=== PATIENT | male | born 1995 | race Caucasian/White ===

== ENCOUNTER → 2018-12-25 | Outpatient (CLI) | payer BC ==
--- NOTE | 2018-12-25 11:13 | MR ---
EXAMINATION TYPE: MR shoulder RT wo con DATE OF EXAM: 12/25/2018 COMPARISON: Pain in right shoulder HISTORY: Right shoulder pain TECHNIQUE: Multiplanar, multisequence imaging of the right shoulder is performed without contrast. FINDINGS: There is increased intrasubstance signal within the distal margin of the infraspinatus and supraspinatus tendons compatible tendinosis and partial intrasubstance tear. Suspect a partial throug h thickness tear involving the anterior fibers of the supraspinatus near the insertion measuring 5 mm . No retraction. Bony labrum intact. Glenohumeral ligaments intact. Arthropathy of the AC joint with very mild mass effect and impingement upon the supraspinatus muscle. No sizable joint effusion. Bone marrow signal within the humeral head is nonspecific but likely in th e basis of chronic impingement. Bicipital tendon is well situated in the bicipital groove. Suprascapular notch has a normal appearanc e. IMPRESSION: 1. Diffuse severe tendinosis of the distal margin of the supraspinatus and infraspinatus tendons. Bur matthew scuffing along the insertion of the supraspinatus tendon with a suspicion of a 5 mm partial throu gh thickness tear involving the anterior fibers of the supraspinatus.
== END | disposition home or self-care (01) ==
LOC: RADMRIMAIN 09:48
PROVIDERS: ATTEND Orthopaedic Surgery
DX: M67.813 Other specified disorders of tendon, right shoulder (principal)

== ENCOUNTER → 2019-01-11 | Outpatient (CLI) | payer BC ==
[2019-01-11 13:17] LABS: Basophils # (A) 0.1 k/uL (0-0.2); Basophils % (A) 1 %; Eosinophils # (A) 0.6 k/uL (0-0.7); Eosinophils % (A) 7 %; HCT 45.8 % (39.0-53.0); Lymphocytes # (A) 3.6 k/uL (1.0-4.8); Lymphocytes % (A) 44 %; MCH 29.2 pg (25.0-35.0); MCV 83.7 fL (80.0-100.0); Mean Platelet Volume 5.4; Monocytes # (A) 0.5 k/uL (0-1.0); Monocytes % (A) 6 %; Neutrophils # (A) 3.2 k/uL (1.3-7.7); Neutrophils % (A) 39 %; Platelet Count 309 k/uL (150-450); RBC 5.47 m/uL (4.30-5.90); RDW 12.3 % (11.5-15.5); WBC 8.2 k/uL (3.8-10.6)
[2019-01-11 13:31] LABS: Potassium 4.4 mmol/L (3.5-5.1)
== END | disposition home or self-care (01) ==
LOC: LABPAT 12:17
PROVIDERS: ATTEND Orthopaedic Surgery
DX: Z01.812 Encounter for preprocedural laboratory examination (principal); M75.41 Impingement syndrome of right shoulder
CPT/HCPCS: 36415; 80051; 85025

== ENCOUNTER 2019-01-25 09:58 | Day surgery (SDC) | payer BC ==
[2019-01-23 16:13] VITALS: BMI 29.2
--- NOTE | 2019-01-24 17:40 | HP ---
HISTORY AND PHYSICAL DATE OF SURGERY: 01/25/2019 Paul Solano is a 23-year-old patient seen with progressive right shoulder pain. We discussed options for treatment. He elected to proceed with arthroscopy. Consent was obtained. PAST MEDICAL HISTORY: 1. Hypertension. 2. Depression. PAST SURGICAL HISTORY: Noncontributory. DAILY MEDICATIONS: Lisinopril/hydrochlorothiazide. ALLERGIES: NONE. SOCIAL HISTORY: Denies tobacco use. PHYSICAL EVALUATION OF RIGHT SHOULDER: Flexion is 100 degrees. Abduction is 90 degrees. External rotation is 30 degrees with pain and weakness. There is tenderness along the anterolateral acromion and rotator cuff insertion site. Impingement sign is positive at 90 degrees. Drop-arm sign is positive. Distal neurovascular exam is intact. RADIOGRAPHS: Radiographs of the right shoulder revealed a type 2 anterior acromion and cystic changes of the greater tuberosity. An MRI of the right shoulder revealed rotator cuff tendon tear. IMPRESSION: 1. Right shoulder impingement with rotator cuff tendon tear. 2. Hypertension. PLAN: Right shoulder arthroscopy, subacromial decompression, probable arthroscopic rotator cuff repair and debridement. MMODL / IJN: [id number] /
[~2019-01-25 09:58] MED LIST: HYDROmorphone 0.5 MG/0.5 ML SYRINGE IVP PRN; LACTATED RINGERS 1,000 ML IV SCH
[2019-01-25] MEDS ORDERED: ONDANSETRON 4 MG/2 ML VIAL IVP ONE (10:55)
[2019-01-25] MEDS ORDERED: DEXAMETHASONE SOD PHOSPHATE 10 MG/ML 1 ML VIAL IV ONE (10:55)
[2019-01-25] MEDS ORDERED: LIDOCAINE 1% 20 ML VIAL (10MG/ML) FOR IV START INTRADERMA ONE (10:55)
[2019-01-25 11:00] VITALS: RESP 16; TEMP 98.9
[2019-01-25] MEDS ORDERED: fentaNYL (PF) 50 MCG/ML 2 ML AMP IV ONE (11:08)
[2019-01-25] MEDS ORDERED: MIDAZOLAM PF (FBP) 2 MG/2 ML VIAL IV ONE (11:08)
[2019-01-25] MEDS ORDERED: SUCCINYLCHOLINE CHLORIDE 100 MG/5 ML SYR IV ONE (11:19)
[2019-01-25] MEDS ORDERED: PROPOFOL 10 MG/ML 20 ML VIAL IV ONE (11:19)
[2019-01-25] MEDS ORDERED: KETOROLAC 30 MG/ML 1 ML VIAL ONE (11:19)
[2019-01-25] MEDS ORDERED: fentaNYL (PF) 50 MCG/ML 2 ML AMP ONE (11:19)
[2019-01-25] MEDS ORDERED: ROPIVACAINE 5 MG/ML 30 ML VIAL ONE (11:19)
[2019-01-25] MEDS ORDERED: LIDOCAINE 1% INJ 10MG/ML (20 ML MDV) ONE (11:19)
[2019-01-25] MEDS ORDERED: MIDAZOLAM 2 MG/2 ML VIAL ONE (11:19)
[2019-01-25] MEDS ORDERED: LACTATED RINGERS 1,000 ML IV ONE ×2 (11:26→13:02)
--- NOTE | 2019-01-25 12:19 | P.ANPRN ---
Procedure Note - Anesthesia - Nerve Block Performed Right Interscalene Single Time Out Performed: Yes Date of Procedure: 01/25/19 Procedure Start Time: 11:08 Procedure Stop Time: 11:14 Location of Patient Procedure: PreOp Indication: Acute Post-Operative Pain, Requested by Surgeon (dione) Specifically requested for management of pain by DrJeanna: Tayo Rucker Sedation Type: Sedate with meaningful contact maintained Preparation: Sterile Prep Position: Supine Catheter: None Needle Types: Pajunk Needle Gauge: 21 Ultrasound used to visualize needle placement: Yes Ultrasound used to observe medication spread: Yes Injectate: 0.5% Ropivacaine (see comment for volume) (20 cc) Blood Aspirated: No Pain Paresthesia on Injection Noted: No Resistance on Injection: Normal Image Stored and Saved: Yes Events: Uneventful and Well Tolerated
--- NOTE | 2019-01-25 13:30 | P.OP ---
Date of Procedure: 01/25/19 Preoperative Diagnosis: Right shoulder impingement Postoperative Diagnosis: 1. Right shoulder rotator cuff tear 2. Right shoulder anterior labral tear 3. Right shoulder impingement Procedure(s) Performed: 1. Right shoulder arthroscopic rotator cuff repair 2. Right shoulder arthroscopic labral repair 3. Right shoulder arthroscopic subacromial decompression Implants: 14.75 Arthrex swivel lock anchor and 22.4 Arthrex push lock anchors Anesthesia: GETA, regional (Interscalene block) Surgeon: Tayo Rucker Section Hand #1: Emilio Dumont Estimated Blood Loss (ml): 10 Pathology: none sent Condition: stable Disposition: PACU Indications for Procedure: 23-year-old patient seen with progressive right shoulder pain. After treatment options were discussed, he elected to proceed with arthroscopy. Operative Findings: See description of procedure Description of Procedure: Patient underwent an interscalene block by department of anesthesia for postoperative pain management. The patient was then taken to the operative suite. The patient underwent a general anesthetic by the department of anesthesia. The patient was placed into a lateral position and secured. There was appropriate padding of the bony prominence. Right shoulder was then prepped and draped in normal sterile orthopedic fashion. We placed the extremity in 10 pounds of longitudinal traction. A posterior incision was now made for a posterior working portal site. The trocar and cannula were inserted into the glenohumeral joint. Arthroscopy was initiated. Spinal needle was now inserted a nteriorly, to ascertain the anterior working portal site. An incision was now made in that area, a trocar was inserted followed by a probe.. There was a anterior labral tear measuring approximately 2 cm that appears unstable. The glenohumeral joint appeared unremarkable. The biceps tendon was stable. The superior, inferior and posterior labrum appeared stable. I now guided down to stable labral tissue. I abraded the anterior glenoid with a motorized bur. I introduced a cannula through the anterior portal site. I passed 2 Arthrex labral tapes. I drilled 2 holes for insertion of our push lock anchors while I held the guide in position and Yazan MALONEY drill holes one at a time. 2 push lock anchors were introduced and her pre-drilled holes with good fixation of the labrum noted. The labral tape was now cut flush. There was good stability. Instruments were removed from the glenohumeral joint. Utilizing the posterior working portal site, the trocar and cannula were inserted into the subacromial space. Arthroscopy initiated. I made an incision 2 fingerbreadths lateral to the acromion. I introduced my trocar followed by my ArthroCare ablator. I now began ablating thick subacromial bursal tissue, which exposed the undersurface of the anterior acromion. There was diminished subacromial space. There was a very prominent anterior acromion. A motorized bur was introduced and a subacromial decompression was performed. There was good decompression of subacromial space noted. The acromioclavicular joint appeared stable. I did note an anterior full-thickness rotator cuff tendon tear. It measured approximately 1 cm. I debrided the margins gained down to stable tendon tissue. I abraded the footprint with a motorized bur. With the assistance of Yazan MALONEY I passed and everted mattress suture through good bites of rotator cuff tendon. I made an mechanical intern portal site off the lateral acromion. I now prepunched hole into her footprint area and chose a 4.75 Ar threx swivel lock anchor. The suture limbs were now passed through the eyelet. The eyelet was introduced our pre-punch hole. I held the eyelet position while Yazan MALONEY tension the sutures and applied the anchor. There was good fixation of the anchor. The residual suture limbs were clipped. There was good compression of the tendon along the footprint. I injected 1 mL Renyte intra-art icular. We had good compression of the tendon along the entire footprint. Instruments now removed from the portal sites. All portal sites were approximated with nylon suture. Sterile dressings were applied followed by a shoulder sling. Emilio MALONEY assisted in this complex case. The patient was awakened, transferred to a bed, and taken to recovery in stable condition.
[2019-01-25 15:06] VITALS: BP 109/71; PULSE 84
== END 2019-01-25 15:26 | disposition home or self-care (01) ==
LOC: OR 09:58
PROVIDERS: ATTEND Orthopaedic Surgery
DX: M75.101 Unspecified rotator cuff tear or rupture of right shoulder, not specified as traumatic (principal); S43.431A Superior glenoid labrum lesion of right shoulder, initial encounter; X58.XXXA Exposure to other specified factors, initial encounter; M75.41 Impingement syndrome of right shoulder; I10 Essential (primary) hypertension; M06.9 Rheumatoid arthritis, unspecified; F32.9 Major depressive disorder, single episode, unspecified; Z79.899 Other long term (current) drug therapy
CPT/HCPCS: 64415; 76942; 29827; 29826; C1713 ×2; Q4212; J2250 ×2; J1100; J0690; J2405; J2001; J3010; J1885; J2795; J0330; J2704

== ENCOUNTER 2022-11-19 22:56 | Emergency (ER) | payer BC ==
[2022-11-19 23:02] VITALS: TEMP 97.6
[2022-11-19] MEDS ORDERED: ORPHENADRINE 30 MG/ML 2 ML VIAL IM STA (23:39)
--- NOTE | 2022-11-19 23:41 | ED ---
General Adult HPI - General Source: patient Mode of arrival: ambulatory Limitations: no limitations <Carlos Eduardo Francois - Last Filed: 11/20/22 00:07> <Trini Diaz - Last Filed: 11/20/22 08:56> - General Chief complaint: Extremity Injury, Lower Stated complaint: Lump in left calf Time Seen by Provider: 11/19/22 23:33 - History of Present Illness Initial comments: 27-year-old male presents to ED with a chief complaint of left calf pain. Patient states hurt his left calf approximately 6 weeks ago. Reports no signi ficant injury at that time. Has been able to relate since. States he was playing softball again today when the pain suddenly worsened. States that he feels a hard "lump" in his calf. Patient is a nonsmoker. No recent history of extended travel. No other complaints at this time. (Carlos Eduardo Francois) - Related Data Home Medications Medication Instructions Recorded Confirmed Cetirizine HCl [Zyrtec] 10 mg PO DAILY 09/29/14 01/23/19 Lisinopril-Hctz 10-12.5 mg 1 tab PO DAILY 01/23/19 01/23/19 [Zestoretic 10-12.5] Venlafaxine HCl [Effexor XR] 75 mg PO DAILY 01/23/19 01/23/19 sulfaSALAzine [Azulfidine] 500 mg PO DAILY 01/23/19 01/23/19 Previous Rx's Medication Instructions Recorded HYDROcodone/APAP 7.5-325MG [[place] 1 each PO Q6HR PRN #28 tab 01/25/19 7.5] Allergies Allergy/AdvReac Type Severity Reaction Status Date / Time No Known Allergies Allergy Verified 01/25/19 10:46 Review of Systems ROS Other: All systems not noted in ROS Statement are negative. <Carlos Eduardo Francois - Last Filed: 11/20/22 00:07> ROS Other: All systems not noted in ROS Statement are negative. <Trini Diaz - Last Filed: 11/20/22 08:56> ROS Statement: Those systems with pertinent positive or pertinent negative responses have been documented in the HPI. Past Medical History Past Medical History: Hypertension History of Any Multi-Drug Resistant Organisms: None Reported Past Surgical History: Adenoidectomy, Orthopedic Surgery, Tonsillectomy Past Psychological History: No Psychological Hx Reported Smoking Status: Never smoker Past Alcohol Use History: None Reported, Rare Past Drug Use History: None Reported <Carlos Eduardo Francois - Last Filed: 11/20/22 00:07> General Exam Limitations: no limitations General appearance: alert, in no apparent distress Eye exam: Present: normal appearance Neck exam: Present: normal inspection Respiratory exam: Present: normal lung sounds bilaterally Cardiovascular Exam: Present: regular rate, normal rhythm GI/Abdominal exam: Present: soft Extremities exam: Present: other (Strength and sensation intact of bilateral lower extremities. DP/PT pulses 2+. Negative Rincon test bilaterally. There is a density of his left upper medial calf. ) Neurological exam: Present: alert, oriented X3 Skin exam: Present: warm, dry <Carlos Eduardo Francois - Last Filed: 11/20/22 00:07> Course Vital Signs 11/19/22 11/20/22 22:59 02:42 Temperature 97.6 F Pulse Rate 92 61 Respiratory 16 18 Rate Blood Pressure 144/97 132/78 O2 Sat by Pulse 97 98 Oximetry Medical Decision Making <PatashwiniCarlos Eduardo gary - Last Filed: 11/20/22 00:07> <Trini Diaz - Last Filed: 11/20/22 08:56> - Medical Decision Making Was pt. sent in by a medical professional or institution (AMARA Johnson, SOFTWARE VERIFICATION ENGINEER, urgent care, hospital, or half-way...) When possible be specific @ -[No] Did you speak to anyone other than the patient for history (EMS, parent, family, police, friend...)? What history was obtained from this source @ -[No] Did you review nursing and triage notes (agree or disagree)? Why? @ -[I reviewed and agree with nursing and triage notes] Were old charts reviewed (outside hosp., previous admission, EMS record, old EKG, old radiological studies, urgent care reports/EKG's, half-way records)? Report findings @ -[No old charts were reviewed] Differential Diagnosis (chest pain, altered mental status, abdominal pain women, abdominal pain men, vaginal bleeding, weakness, fever, dyspnea, syncope, headache, dizziness, GI bleed, back pain, seizure, CVA, palpatations, mental health, musculoskeletal)? @ -Differential Musculoskeletal Muscular strain, contusion, ligament sprain, fracture, arthritis, septic arthritis, bursitis, cellulitis, muscle spasm, nerve compression, DVT, arterial occlusion, herpes zoster, electrolyte abnormality, tumor.... This is not meant to be in all inclusive list EKG interpreted by me (3pts min.). @ -[As above] X-rays interpreted by me (1pt min.). @ -[None done] CT interpreted by me (1pt min.). @ -[None done] U/S interpreted by me (1pt. min.). @ -Ultrasound shows no evidence of DVT. What testing was considered but not performed or refused? (CT, X-rays, U/S, labs)? Why? @ -[None] What meds were considered but not given or refused? Why? @ -[None] Did you discuss the management of the patient with other professionals (professionals i.e. , PA, SOFTWARE VERIFICATION ENGINEER, lab, RT, psych nurse, social research assistant, ordering box operator, teacher, staff submarine warfare officer, family independence case manager)? Give summary @ -[No] Was smoking cessation discussed for >3mins.? @ -[No] Was critical care preformed (if so, how long)? @ -[No] Were there social determinants of health that impacted care today? How? (Homelessness, low income, unemployed, alcoholism, drug addiction, transportation, low edu. Level, literacy, decrease access to med. care, [place] [facility], rehab)? @ -[No] Was there de-escalation of care discussed even if they declined (Discuss DNR or withdrawal of care, Hospice)? DNR status @ -[No] What co-morbidities impacted this encounter? (DM, HTN, Smoking, COPD, CAD, Cancer, CVA, ARF, Chemo, Hep., AIDS, mental health diagnosis, sleep apnea, morbid obesity)? @ -[None] Was patient admitted / discharged? Hospital course, mention meds given and route, prescriptions, significant lab abnormalities, going to OR and other pertinent info. @ -Pending. At this time ultrasound and urine pending. Patient signed out to Dr. Diaz Undiagnosed new problem with uncertain prognosis? @ -[No] Drug Therapy requiring intensive monitoring for toxicity (Heparin, Nitro, Insulin, Cardizem)? @ -[No] Were any procedures done? @ -[No] Diagnosis/symptom? @ -[default] Acute, or Chronic, or Acute on Chronic? @ -[default] Uncomplicated (without systemic symptoms) or Complicated (systemic symptoms)? @ -[default] Side effects of treatment? @ -[No] Exacerbation, Progression, or Severe Exacerbation? @ -[No] Poses a threat to life or bodily function? How? (Chest pain, [place], [place], pneumonia, PE, COPD, DKA, ARF, appy, cholecystitis, CVA, Diverticulitis, Homicidal, Suicidal, threat to staff... and all critical care pts) @ -[No] (Carlos Eduardo Francois) Was patient admitted / discharged? Hospital course, mention meds given and route, prescriptions, significant lab abnormalities, going to OR and other pertinent info. @ -Patient was signed out to me pending ultrasound read. Patient wanted to leave before read was back. Did discuss that he is leaving with the risk that he may have a DVT which could travel to his lung. Patient understood this. Accepting the risk of permanent disability and . Informed that we will call with any positive results. Recommended he follow up with his primary care doctor. Patient understood this and agreed without ultrasound results Undiagnosed new problem with uncertain prognosis? @ -Yes Drug Therapy requiring intensive monitoring for toicty (Heparin, Nitro, Insulin, Cadiem)? @ -[No] Were any procedures done? @ -[No] Diagnosis/symptom? @ -Acute calf pain, acute hematoma Acute, or Chronic, or Acute on Chronic? @ -Acute Uncomplicated (without systemic symptoms) or Complicated (systemic symptoms)? @ -ncomplicated Side effects of treatment? @ -[No] Exacerbtin, Progression, or Severe Exacerbation? @ -[No] Poses a threat to life or bodily function? How? (Chest pain, [place], [place], pneumonia, PE, COPD, DKA, ARF, appy, cholecystitis, CVA, Diverticulitis, Homicidal, Suicidal, shahriar to staff... and all critical care pts) @ -[No] (Trini Diaz) Disposition <Carlos Eduardo Francois - Last Filed: 11/20/22 00:07> Is patient prescribed a controlled substance at d/c from ED?: No Time of Disposition: 02:38 <Trini Diaz - Last Filed: 11/20/22 08:56> Clinical Impression: Calf pain Disposition: HOME SELF-CARE Condition: Undetermined Instructions (If sedation given, give patient instructions): Leg Pain (ED) Additional Instructions: You are leaving the emergency department without results. There is a chance that you could have a blood clot in your leg. I will call you with results but you are leaving knowing that you could suffer from permanent disability and even Referrals: Carlitos Beavers MD [Primary Care Provider] - 1-2 days
[2022-11-20 02:43] VITALS: BP 132/78; PULSE 61; RESP 18
--- NOTE | 2022-11-20 04:04 | US ---
EXAMINATION TYPE: US venous doppler duplex LE LT DATE OF EXAM: 11/20/2022 12:06 AM COMPARISON: NONE CLINICAL INDICATION: Male, 27 years old with history of r/o dvt; lump left calf hurt it playing softb all. SIDE PERFORMED: Left TECHNIQUE: The lower extremity deep venous system is examined utilizing real time linear array sonog judah with graded compression, doppler sonography and color-flow sonography. VESSELS IMAGED: Common Femoral Vein Deep Femoral Vein Greater Saphenous Vein * Femoral Vein Popliteal Vein Small Saphenous Vein * Proximal Calf Veins (* superficial vessels) Left Leg: Negative for DVT Complex hypoechoic area seen left calf area of lump 5.9 x 2.8 x 4.8 cm. This may be a hematoma. IMPRESSION: 1. Left lower extremity ultrasound negative for deep venous thrombosis. 2. Suspected hematoma left calf region. Follow-up can be performed as clinically indicated.
== END 2022-11-20 02:43 | disposition home or self-care (01) ==
LOC: EC 22:56
DX: S80.12XA Contusion of left lower leg, initial encounter (principal); I10 Essential (primary) hypertension; Z79.899 Other long term (current) drug therapy; X58.XXXA Exposure to other specified factors, initial encounter; Y93.64 Activity, baseball
CPT/HCPCS: 99283; 96372; J2360